=== PATIENT | male | born 1950 | race Asian ===

== ENCOUNTER 2022-12-17 05:31 | Inpatient (IN) | payer MEDICARE, MEDICAID ==
[~2022-12-17] VITALS: Ht 177.8 cm; Wt 82.0 kg
[~2022-12-17 05:31] MED LIST: ATEN-73 PO; ATOR40TA71 PO; BUPR-50 PO; INSU3INS3 SQ; METF-444 PO; RIVA20TA PO; SEMA1PEN3 SQ
[2022-12-17 05:47] LABS: EOSINOPHILS % (AUTO) 2.1 % (1.0-6.0); HEMATOCRIT 32.5 % (41-53); HEMOGLOBIN 10.8 g/dL (13.5-17.5); LYMPHOCYTES # (AUTO) 0.7 K/uL (1.0-4.8); MEAN CORPUSCULAR HEMOGLOBIN 28.3 pg (26.0-34.0); MEAN CORPUSCULAR HGB CONC 33.3 G/dL (31.0-37.0); MEAN CORPUSCULAR VOLUME 85 fL (80-100); MONOCYTES # (AUTO) 0.2 K/uL (0.1-1.0); NEUTROPHILS # (AUTO) 1.4 K/uL (1.8-7.7); NEUTROPHILS % (AUTO) 57.9 % (40.0-70.0); PLATELET COUNT (AUTO) 62 K/uL (150-450); RED BLOOD CELL COUNT(AUTO) 3.82 MIL/uL (4.50-5.90); RED CELL DISTRIBUTION WIDTH 16.8 % (11.5-14.5)
[2022-12-17 05:54] LABS: ANION GAP 9 mmol/L (8-16); CALCIUM, TOTAL 9.5 mg/dL (8.8-10.5); CARBON DIOXIDE 27 mmol/L (22-29); CHLORIDE 100 mmol/L (98-107); CREATININE 0.82 mg/dL (0.60-1.30); GLOMERULAR FILTR. RATE CALC > 60 mL/min (>60); GLUCOSE,RANDOM 212 mg/dL (70-110); POTASSIUM 3.9 mmol/L (3.5-5.1); SODIUM SERUM 135 mmol/L (136-145)
[2022-12-17 05:59] LABS: ALANINE AMINOTRANSFERASE 43 U/L (12-78); ALBUMIN 3.6 g/dL (3.4-5.0); ALKALINE PHOSPHATASE 103 U/L (46-116); ASPARTATE AMINOTRANSFERASE 26 U/L (15-37); BILIRUBIN,TOTAL 0.8 mg/dL (0.1-1.0); TOTAL PROTEIN, SERUM 6.9 g/dL (6.4-8.2)
[2022-12-17 06:00] LABS: INR 1.2 (0.9-1.1); PROTHROMBIN TIME 12.3 SEC (9.4-11.6)
[2022-12-17] MEDS ORDERED: FURO20 PO (06:17)
[2022-12-17] MEDS ORDERED: SENN-376 PO (06:17)
[2022-12-17] MEDS ORDERED: TAMS-13 PO (06:17)
[2022-12-17] MEDS ORDERED: ASPI-1444 PO (06:17)
[2022-12-17] MEDS ORDERED: MECL-167 PO (06:28)
[2022-12-17] MEDS ORDERED: APIX5TAB PO (06:28)
[2022-12-17] MEDS ORDERED: DOCU-385 PO (06:28)
[2022-12-17] MEDS ORDERED: FERR324T23 PO (06:28)
[2022-12-17] MEDS ORDERED: CYAN500T46 PO (06:28)
[2022-12-17] MEDS ORDERED: ONDA-104 PO (06:28)
[2022-12-17] MEDS ORDERED: SERT-158 PO (06:28)
[2022-12-17] MEDS ORDERED: INSLAN SQ (06:28)
[2022-12-17] MEDS ORDERED: METO25XL PO (06:28)
[2022-12-17] MEDS ORDERED: FAMO20 PO (06:28)
[2022-12-17] MEDS ORDERED: INSREG SQ (06:28)
[2022-12-17 06:42] LABS: PHOSPHORUS 3.7 mg/dL (2.5-4.9)
[2022-12-17] MEDS ORDERED: 0.9% SODIUM CHLORIDE 10 ML SYRINGE IVP PRN (07:30)
[2022-12-17] MEDS ORDERED: ONDANSETRON HCL 4 MG/2 ML VIAL IVP PRN ×2 (07:30→13:00)
[2022-12-17] MEDS ORDERED: ACETAMINOPHEN 325 MG TABLET PO PRN ×2 (07:30→13:00)
[2022-12-17 07:45] LABS: APPEARANCE,URINE CLEAR (CLEAR); BILIRUBIN,URINE NEGATIVE (NEGATIVE); GLUCOSE, URINE (UA) 150-200 mg/dL (NEGATIVE); KETONES,URINE NEGATIVE (NEGATIVE); LEUKOCYTE ESTERASE ,URINE NEGATIVE (NEGATIVE); NITRATE,URINE NEGATIVE (NEGATIVE); OCCULT BLOOD,URINE NEGATIVE (NEGATIVE); PROTEIN,URINE NEGATIVE (NEGATIVE); SPECIFIC GRAVITIY, URINE 1.031 (1.003-1.030); UROBILINOGEN,URINE <=1.0 mg/dL (<=1.0)
[2022-12-17 07:49] LABS: AMPHET/METH SCREEN,URINE NEGATIVE (NEGATIVE); BARBITURATE SCREEN, URINE NEGATIVE (NEGATIVE); BENZODIAZEPINES SCREEN,URINE NEGATIVE (NEGATIVE); CANNABINOID SCREEN,URINE NEGATIVE (NEGATIVE); COCAINE SCREEN,URINE NEGATIVE (NEGATIVE); METHADONE SCREEN, URINE NEGATIVE (NEGATIVE); OPIATE SCREEN,URINE NEGATIVE (NEGATIVE); PHENCYCLIDINE SCREEN,URINE NEGATIVE (NEGATIVE)
[2022-12-17 07:55] LABS: BACTERIA,URINE None Seen /HPF (None Seen); RBC,URINE None Seen /HPF (0-2); SQUAMOUS EPITHELIAL CELL,UR None Seen /LPF (None Seen); WBC,URINE None Seen /HPF (0-5)
[2022-12-17 12:59] VITALS: BP 135/81; PULSE 85; RESP 18; TEMP 97.6
[2022-12-17] MEDS ORDERED: BISACODYL 10 MG RECTAL RECTAL SUPPOSITORY PR PRN (13:00)
[2022-12-17] MEDS ORDERED: MORPHINE SULFATE 2 MG/ML SYRINGE IVP PRN (13:00)
[2022-12-17] MEDS ORDERED: ONDANSETRON HCL 4 MG TABLET PO PRN (13:00)
[2022-12-17] MEDS ORDERED: ASPIRIN 81 MG CHEWABLE TABLET PO ONE (13:00)
[2022-12-17] MEDS ORDERED: HYDROCODONE/ACETAMINOPHEN 5-325 MG TABLET PO PRN (13:00)
[2022-12-17] MEDS ORDERED: MAGNESIUM HYDROXIDE SUSPENSION 30 ML UDCUP PO PRN (13:00)
[2022-12-17] MEDS: MetFORMIN HCL 500 MG TABLET PO SCH (18:47)
[2022-12-17 20:00] VITALS: BP 141/85; PULSE 87; RESP 19; TEMP 98.2
[2022-12-17] MEDS ORDERED: INSULIN LISPRO 100 UNITS/ML SQ ONE (21:00)
[2022-12-17] MEDS: ATORVASTATIN CALCIUM 20 MG TABLET PO SCH (21:02)
[2022-12-17] MEDS: INSULIN GLARGINE,HUM.REC.ANLOG 100 UNITS/ML SQ SCH (21:02)
[2022-12-17] MEDS: ZOLPIDEM TARTRATE 5 MG TABLET PO PRN (21:03)
[2022-12-17] MEDS: TAMSULOSIN HCL 0.4 MG CAPSULE PO SCH (21:03)
[2022-12-17] MEDS: ATENOLOL 25 MG TABLET PO SCH (21:03)
[2022-12-17] MEDS: DOCUSATE SODIUM 100 MG CAPSULE PO SCH (21:03)
[2022-12-18] VITALS: BP 106/62; PULSE 75; RESP 16; TEMP 98
[2022-12-18 01:26] LABS: GLUCOMETER DEV NAME(LOC) 5S.2C
[2022-12-18 01:26] LABS: GLUCOMETER DEV NAME(LOC) 5S.2C
[2022-12-18 04:00] VITALS: BP 110/56; PULSE 74; RESP 16; TEMP 98.5
[2022-12-18 07:21] LABS: BASOPHILS % (AUTO) 0.9 % (0.0-2.0); EOSINOPHILS % (AUTO) 4.1 % (1.0-6.0); HEMATOCRIT 32.3 % (41-53); HEMOGLOBIN 10.8 g/dL (13.5-17.5); LYMPHOCYTES # (AUTO) 0.8 K/uL (1.0-4.8); LYMPHOCYTES % (AUTO) 31.8 % (22.0-44.0); MEAN CORPUSCULAR HEMOGLOBIN 28.4 pg (26.0-34.0); MEAN CORPUSCULAR HGB CONC 33.4 G/dL (31.0-37.0); MEAN CORPUSCULAR VOLUME 85 fL (80-100); MONOCYTES # (AUTO) 0.2 K/uL (0.1-1.0); NEUTROPHILS # (AUTO) 1.3 K/uL (1.8-7.7); NEUTROPHILS % (AUTO) 53.2 % (40.0-70.0); PLATELET COUNT (AUTO) 74 K/uL (150-450); RED CELL DISTRIBUTION WIDTH 16.5 % (11.5-14.5)
[2022-12-18 08:22] LABS: ALANINE AMINOTRANSFERASE 40 U/L (12-78); ALBUMIN 3.1 g/dL (3.4-5.0); ALKALINE PHOSPHATASE 96 U/L (46-116); ANION GAP 11 mmol/L (8-16); ASPARTATE AMINOTRANSFERASE 24 U/L (15-37); BILIRUBIN,TOTAL 0.7 mg/dL (0.1-1.0); CALCIUM, TOTAL 8.9 mg/dL (8.8-10.5); CARBON DIOXIDE 25 mmol/L (22-29); CHLORIDE 100 mmol/L (98-107); CHOL/HDL RATIO 2.6 (4.2-7.3); CHOLESTEROL 99 mg/dL (131-200); CREATININE 0.73 mg/dL (0.60-1.30); GLOMERULAR FILTR. RATE CALC > 60 mL/min (>60); GLUCOSE,RANDOM 143 mg/dL (70-110); HDL CHOLESTEROL 38 mg/dL (40-60); LDL CHOL (CALC.) 40 mg/dL (0-130); POTASSIUM 4.2 mmol/L (3.5-5.1); SODIUM SERUM 136 mmol/L (136-145); TOTAL PROTEIN, SERUM 6.4 g/dL (6.4-8.2); TRIGLYCERIDES 104 mg/dL (15-150)
[2022-12-18 08:46] LABS: THYROID STIMULATING HORMONE 0.82 uIU/mL (0.36-3.74)
[2022-12-18] MEDS ORDERED: ATORVASTATIN CALCIUM 40 MG TABLET PO SCH (09:00)
[2022-12-18] MEDS: DOCUSATE SODIUM 100 MG CAPSULE PO SCH ×2 (09:01→21:13)
[2022-12-18] MEDS: PANTOPRAZOLE SODIUM 40 MG DR TABLET PO SCH (09:01)
[2022-12-18] MEDS: ASPIRIN 81 MG DR TABLET PO SCH (09:01)
[2022-12-18] MEDS: ATENOLOL 25 MG TABLET PO SCH ×2 (09:02→21:00)
[2022-12-18] MEDS: MetFORMIN HCL 500 MG TABLET PO SCH ×3 (09:08→17:17)
[2022-12-18] MEDS: INSULIN GLARGINE,HUM.REC.ANLOG 100 UNITS/ML SQ SCH ×2 (09:08→21:12)
[2022-12-18 09:27] LABS: GLUCOMETER DEV NAME(LOC) 5S.2C
[2022-12-18 11:15] VITALS: BP 111/63; PULSE 79; RESP 18; TEMP 98
[2022-12-18] MEDS ORDERED: DEXTROSE 50%-WATER 25 GM/50 ML SYRINGE IVP PRN (12:30)
[2022-12-18] MEDS: INSULIN LISPRO 100 UNITS/ML SQ PRN ×3 (12:33→21:12)
[2022-12-18 15:49] VITALS: BP 109/61; PULSE 77; RESP 18; TEMP 98
[2022-12-18] MEDS ORDERED: RIVAROXABAN 20 MG TABLET PO SCH (18:00)
[2022-12-18 20:00] VITALS: BP 108/67; PULSE 82; RESP 16; TEMP 98.1
[2022-12-18 20:35] LABS: GLUCOMETER DEV NAME(LOC) 5N.1C
[2022-12-18 20:36] LABS: GLUCOMETER DEV NAME(LOC) 5N.1C
[2022-12-18] MEDS: ZOLPIDEM TARTRATE 5 MG TABLET PO PRN (21:13)
[2022-12-18] MEDS: TAMSULOSIN HCL 0.4 MG CAPSULE PO SCH (21:13)
[2022-12-18] MEDS: ATORVASTATIN CALCIUM 20 MG TABLET PO SCH (21:13)
[2022-12-19] MEDS: INSULIN LISPRO 100 UNITS/ML SQ PRN ×2 (06:10→12:31)
[2022-12-19 06:11] LABS: GLUCOMETER DEV NAME(LOC) 5N.1C
[2022-12-19] MEDS: PANTOPRAZOLE SODIUM 40 MG DR TABLET PO SCH (09:29)
[2022-12-19] MEDS: ATENOLOL 25 MG TABLET PO SCH (09:29)
[2022-12-19] MEDS: MetFORMIN HCL 500 MG TABLET PO SCH (09:30)
[2022-12-19] MEDS: ASPIRIN 81 MG DR TABLET PO SCH (09:30)
[2022-12-19] MEDS: INSULIN GLARGINE,HUM.REC.ANLOG 100 UNITS/ML SQ SCH (09:32)
[2022-12-19] MEDS: DOCUSATE SODIUM 100 MG CAPSULE PO SCH (09:54)
[2022-12-19] MEDS ORDERED: BuPROPion HCL 75 MG TABLET PO ONE (11:00)
[2022-12-19] MEDS ORDERED: ALPRAZolam 0.5 MG TABLET PO ONE (11:00)
[2022-12-19] MEDS ORDERED: FLUoxetine HCL 10 MG CAPSULE PO ONE (11:00)
[2022-12-19] MEDS ORDERED: ATOR40TA71 PO (11:26)
[2022-12-19] MEDS ORDERED: APIX5TAB PO (11:26)
[2022-12-19] MEDS ORDERED: ALPR-707 PO (11:26)
[2022-12-19] MEDS ORDERED: PROZ10 PO (11:26)
[2022-12-19] MEDS ORDERED: ASPI-1444 PO (11:26)
[2022-12-19] MEDS ORDERED: BUPR-50 PO (11:26)
[2022-12-19] MEDS ORDERED: ATEN-73 PO (11:26)
[2022-12-19] MEDS ORDERED: INSU3INS3 SQ (11:26)
[2022-12-19] MEDS ORDERED: DOCU-385 PO (11:26)
[2022-12-19] MEDS ORDERED: ATORVASTATIN CALCIUM 20 MG TABLET PO SCH (21:00)
[2022-12-19] MEDS ORDERED: ALPRAZolam 0.5 MG TABLET PO SCH (21:00)
[2022-12-20 08:12] LABS: GLUCOMETER DEV NAME(LOC) 5S.1B
[2022-12-20 08:12] LABS: GLUCOMETER DEV NAME(LOC) 5S.1B
[2022-12-20] MEDS ORDERED: FLUoxetine HCL 10 MG CAPSULE PO SCH (09:00)
[2022-12-20] MEDS ORDERED: BuPROPion HCL 75 MG TABLET PO SCH (09:00)
== END 2022-12-19 16:30 | disposition home or self-care (01) | DRG 69 ==
LOC: EMS 05:31 → 5S 08:56
PROVIDERS: ADMIT Internal Medicine; ATTEND Internal Medicine
DX: G45.9 Transient cerebral ischemic attack, unspecified (principal); I48.20 Chronic atrial fibrillation, unspecified; I11.0 Hypertensive heart disease with heart failure; E11.9 Type 2 diabetes mellitus without complications; E78.5 Hyperlipidemia, unspecified; F41.9 Anxiety disorder, unspecified; I50.9 Heart failure, unspecified; N40.0 Benign prostatic hyperplasia without lower urinary tract symptoms; Z86.73 Personal history of transient ischemic attack (TIA), and cerebral infarction without residual deficits; Z87.891 Personal history of nicotine dependence; Z79.84 Long term (current) use of oral hypoglycemic drugs; Z79.899 Other long term (current) drug therapy; H81.10 Benign paroxysmal vertigo, unspecified ear
CPT/HCPCS: 70496; 70498; 71045; 80053; 80061; 80307; 81001; 82948; 82962; 83735; 84100; 84443; 84484; 85025; 85610; 85730; 86850; 86900; 86901; 92526; 92610; 93005; 93880; 97163; 99285; J1815; 36415-L1; 36415-TC; 70450; 70450-TC